=== PATIENT | female | born 1990 | race American Indian/Alaskan Native ===

== ENCOUNTER 2017-04-20 01:34 | Emergency (ER) | payer MEDICAID ==
[2017-04-20] MEDS ORDERED: NACL 0.9% 1000 ML 1,000 ML IV ONE (03:43)
[2017-04-20] MEDS ORDERED: KEPPRA 1,000 MG/NS 0.75% 100ML 1,000 MG/100 ML BAG IV ONE (03:43)
[2017-04-20 04:38] LABS: Urine Drugs of Abuse Note Disclamer
[2017-04-20 04:39] LABS: Basophils % (Auto) 0.6 % (0.0-1.8); Eosinophils % (Auto) 3.5 % (0.0-4.3); Hematocrit 39.7 % (30.3-42.9); Hemoglobin 13.2 gm/dl (10.1-14.3); Mean Corpuscular HGB Conc 33 % (30-34); Mean Corpuscular Hemoglobin 31 pg (28-32); Mean Corpuscular Volume 93 fl (79-97); Platelet Count 266 K/mm3 (140-440); Red Blood Count 4.25 M/mm3 (3.65-5.03); Red Cell Distribution Width 12.9 % (13.2-15.2)
[2017-04-20 04:42] LABS: Anion Gap 15 mmol/L; Blood Urea Nitrogen 15 mg/dL (7-17); Calcium 8.9 mg/dL (8.4-10.2); Carbon Dioxide 24 mmol/L (22-30); Chloride 103.3 mmol/L (98-107); Creatine Kinase 44 units/L (30-135); Glucose 106 mg/dL (65-100); Potassium 3.7 mmol/L (3.6-5.0); Sodium 139 mmol/L (137-145)
--- NOTE | 2017-04-20 04:54 | Emergency Department Report ---
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 Patient has not had a seizure in the last 2 years. She takes Keppra 500mg once daily and has been compliant with her medication. No preceding symptoms reported. Patient was standing when her head slumped over and her picked her up just prior to seizing. EMS called and second seizure witnessed by EMS. Last about 20-30 seconds. No tongue laceration or urinary incontinence reported. Patient alert and oriented in the ED and denies any complaints. Patient states she is supposed to follow-up with a neurosurgeon to fix her [employer]ERIAL[employer]INE[employer]ING TECH[employer]ICIAN shunt since it has a kink. She does not have any headaches, nausea, vomiting, blurred vision, focal weakness or numbness. She does not have a neurologist. - Related Data Previous Rx's Medication Instructions Recorded Last Taken Type levETIRAcetam [Keppra TAB] 500 mg PO BID #60 tablet 04/20/17 Unknown Rx Allergies Allergy/AdvReac Type Severity Reaction Status Date / Time No Known Allergies Allergy Unverified 01/07/14 12:33 ED Review of Systems ROS: Stated complaint: SEIZURE Other details as noted in HPI Comment: All other systems reviewed and negative Other: Constitutional: No fevers chills Eyes: No eye pain visual changes or discharge ENT: No ear pain or throat pain Neck: Denies pain Respiratory: Denies cough wheezing shortness of breath Cardiovascular: Denies chest pain, palpitations, syncope GI: Denies abdominal pain, nausea, vomiting, diarrhea : Denies dysuria, urinary frequency, or urgency Musculoskeletal: Denies back pain Skin: Denies rash, lesions, erythema Neurologic: Denies headache, numbness, weakness Psychiatric: Denies suicidal ideation, hallucinations ED Past Medical Hx - Past Medical History Hx Seizures: Yes Additional medical history: Right side vp cardiovascular shunt - Surgical History Additional Surgical History: shunt placement - Social History Smoking Status: Never Smoker Substance Use Type: Marijuana - Medications Home Medications: Home Medications Medication Instructions Recorded Confirmed Last Taken Type levETIRAcetam [Keppra TAB] 500 mg PO BID #60 tablet 04/20/17 Unknown Rx ED Physical Exam - General Limitations: No Limitations - Other Other exam information: General: No limitations, patient is alert in no acute distress Head exam: Atraumatic, normocephalic. right-sided [employer]ICIAN shunt Eyes exam: Normal appearance ENT: Moist mucous membrane, normal oropharynx Neck exam: Normal inspection, full range of motion, no meningismus nontender Respiratory exam: Clear to auscultation bilateral, no wheezes, rales, crackles Cardiovascular: Normal rate and rhythm, normal heart sounds Abdomen: Soft, nondistended, and nontender, with normal bowel sounds, no rebound, or guarding Extremity: Full range of motion normal inspection no deformity Back: Normal Inspection, full range of motion, no tenderness Neurologic: Alert, oriented x3, cranial nerves intact, no motor or sensory deficit Psychiatric: normal affect, normal mood Skin: Warm, dry, intact ED Course Vital Signs 04/20/17 04/20/17 04/20/17 01:41 01:50 01:52 Temperature 98.3 F Pulse Rate 94 H Respiratory 18 Rate Blood Pressure 109/60 94/54 109/60 O2 Sat by Pulse 98 97 98 Oximetry 04/20/17 04/20/17 04/20/17 02:00 02:10 02:20 Temperature Pulse Rate Respiratory Rate Blood Pressure 94/54 93/56 91/52 O2 Sat by Pulse 97 97 97 Oximetry 04/20/17 04/20/17 04/20/17 02:30 02:33 02:40 Temperature Pulse Rate 87 70 Respiratory 14 18 22 Rate Blood Pressure 91/52 O2 Sat by Pulse 98 98 97 Oximetry 04/20/17 04/20/17 04/20/17 02:50 03:00 03:10 Temperature Pulse Rate 74 68 64 Respiratory 21 28 H 26 H Rate Blood Pressure 105/60 107/53 107/53 O2 Sat by Pulse 97 97 97 Oximetry 04/20/17 04/20/17 04/20/17 03:20 03:30 03:40 Temperature Pulse Rate 62 66 79 Respiratory 26 H 27 H 16 Rate Blood Pressure 107/62 102/57 102/57 O2 Sat by Pulse 97 97 98 Oximetry 04/20/17 04/20/17 04/20/17 03:50 04:00 04:10 Temperature Pulse Rate 63 99 H 84 Respiratory 22 20 22 Rate Blood Pressure 102/57 102/57 102/57 O2 Sat by Pulse 98 98 98 Oximetry 04/20/17 04/20/17 04:20 04:30 Temperature Pulse Rate 64 85 Respiratory 14 14 Rate Blood Pressure 96/46 96/46 O2 Sat by Pulse 97 99 Oximetry - Reevaluation(s) Reevaluation #1: 04/20/17 04:53 Patient loaded with Keppra 1 g and 1 L normal saline ED Medical Decision Making - Lab Data Result diagrams: 04/20/17 03:47 04/20/17 03:47 Lab Results 04/20/17 04/20/17 04/20/17 Range/Units 03:47 03:47 03:47 WBC 8.0 (4.5-11.0) K/mm3 RBC 4.25 (3.65-5.03) M/mm3 Hgb 13.2 (10.1-14.3) gm/dl Hct 39.7 (30.3-42.9) % MCV 93 (79-97) fl MCH 31 (28-32) pg MCHC 33 (30-34) % RDW 12.9 L (13.2-15.2) % Plt Count 266 (140-440) K/mm3 Lymph % (Auto) 29.0 (13.4-35.0) % Creek % (Auto) 10.8 H (0.0-7.3) % Eos % (Auto) 3.5 (0.0-4.3) % Baso % (Auto) 0.6 (0.0-1.8) % Lymph # 2.3 (1.2-5.4) K/mm3 Creek # 0.9 H (0.0-0.8) K/mm3 Eos # 0.3 (0.0-0.4) K/mm3 Baso # 0.0 (0.0-0.1) K/mm3 Seg Neutrophils % 56.1 (40.0-70.0) % Seg Neutrophils # 4.5 (1.8-7.7) K/mm3 VBG pH (7.320-7.420) Sodium 139 (137-145) mmol/L Potassium 3.7 (3.6-5.0) mmol/L Chloride 103.3 (98-107) mmol/L Carbon Dioxide 24 (22-30) mmol/L Anion Gap 15 mmol/L BUN 15 (7-17) mg/dL Creatinine 0.6 L (0.7-1.2) mg/dL Estimated GFR > 60 ml/min BUN/Creatinine Ratio 25.00 % Glucose 106 H (65-100) mg/dL Lactic Acid 1.10 (0.7-2.0) mmol/L Calcium 8.9 (8.4-10.2) mg/dL Magnesium 2.10 (1.7-2.3) mg/dL Total Creatine Kinase 44 (30-135) units/L HCG, Qual (Negative) 04/20/17 04/20/17 Range/Units 03:47 03:47 WBC (4.5-11.0) K/mm3 RBC (3.65-5.03) M/mm3 Hgb (10.1-14.3) gm/dl Hct (30.3-42.9) % MCV (79-97) fl MCH (28-32) pg MCHC (30-34) % RDW (13.2-15.2) % Plt Count (140-440) K/mm3 Lymph % (Auto) (13.4-35.0) % Creek % (Auto) (0.0-7.3) % Eos % (Auto) (0.0-4.3) % Baso % (Auto) (0.0-1.8) % Lymph # (1.2-5.4) K/mm3 Creek # (0.0-0.8) K/mm3 Eos # (0.0-0.4) K/mm3 Baso # (0.0-0.1) K/mm3 Seg Neutrophils % (40.0-70.0) % Seg Neutrophils # (1.8-7.7) K/mm3 VBG pH 7.401 (7.320-7.420) Sodium (137-145) mmol/L Potassium (3.6-5.0) mmol/L Chloride (98-107) mmol/L Carbon Dioxide (22-30) mmol/L Anion Gap mmol/L BUN (7-17) mg/dL Creatinine (0.7-1.2) mg/dL Estimated GFR ml/min BUN/Creatinine Ratio % Glucose (65-100) mg/dL Lactic Acid (0.7-2.0) mmol/L Calcium (8.4-10.2) mg/dL Magnesium (1.7-2.3) mg/dL Total Creatine Kinase (30-135) units/L HCG, Qual Negative (Negative) uds pending - EKG Data -: EKG Interpreted by Me (nsr 69 sinus arrhythmia) - Medical Decision Making Plan to discharge patient. Patient is not have any headache or neurological complaints other than seizure. We'll increase Keppra dose. outpatient follow- up with neurologist will be encouraged. No acute lab abnormality. UDS pending at disposition but unlikely to change of address clerk. - Differential Diagnosis breakthrough seizure, medication noncompliance, O abnormality Critical Care Time: No Critical care attestation.: If time is entered above; I have spent that time in minutes in the direct care of this critically ill patient, excluding procedure time. ED Disposition Clinical Impression: Seizure Disposition: DC-01 TO HOME OR SELFCARE Is pt being admited?: No Does the pt Need Aspirin: No Condition: Stable Instructions: Epilepsy (ED) Additional Instructions: Increase your Keppra from 500mg once a day to 500mg twice a day. Follow-up with either neurologist provided. Return if symptoms worsen. Prescriptions: levETIRAcetam [Keppra TAB] 500 mg PO BID #60 tablet Referrals: JACQUELINE ARTEAGA MD [Staff Physician] - 3-5 Days BELKIS TORRES MD [Staff Physician] - 3-5 Days Time of Disposition: 05:13
[2017-04-20 05:53] VITALS: BP 101/65
== END 2017-04-20 05:53 | disposition home or self-care (01) ==
LOC: ED 01:34
DX: R56.9 Unspecified convulsions (principal); F12.10 Cannabis abuse, uncomplicated
CPT/HCPCS: 36415; 80048; 80307; 82140; 82550; 82805; 83735; 84703; 85025; 93005; 93010; 96361; 96374; 99284; J1953; J7030